=== PATIENT | male | born 1950 | race Caucasian/White ===

== ENCOUNTER 2016-11-21 09:05 | Outpatient (CLI) | payer OTHER | END 2016-11-21 19:59 | disposition home or self-care (01) | LOC: SCT 09:05 | PROVIDERS: ATTEND Orthopaedic Surgery | DX: M17.11 Unilateral primary osteoarthritis, right knee (principal); M85.88 Other specified disorders of bone density and structure, other site; I70.208 Unspecified atherosclerosis of native arteries of extremities, other extremity; M25.861 Other specified joint disorders, right knee | CPT/HCPCS: 73700-TC ==

== ENCOUNTER 2019-01-27 08:18 | Outpatient (CLI) | payer OTHER | END 2019-01-27 21:18 | disposition home or self-care (01) | LOC: SNM 08:18 | PROVIDERS: ATTEND Family Medicine | DX: M25.662 Stiffness of left knee, not elsewhere classified (principal) | CPT/HCPCS: 78315; A9503 ==